=== PATIENT | female | born 1990 ===

== ENCOUNTER → 2021-04-20 14:10 | Observation (INO) ==
[2021-04-20 10:20] LABS: Basophils % 0.2 %; Eosinophils % 0.2 %; Hematocrit 29.8 % (35.3-44.9); Hemoglobin 9.3 g/dL (11.5-15.4); Immature Granulocytes % 0.9 % (0-4); Lymphocytes # 0.8 K/mcL (0.6-4.6); Lymphocytes % 9.4 %; Mean Corpuscular HGB Conc 31.2 g/dL (31.6-35.5); Mean Corpuscular Hemoglobin 24.6 pg (28.0-33.3); Mean Corpuscular Volume 78.8 fL (83.0-100.0); Mean Platelet Volume 10.5 fL (9.4-12.4); Monocytes # 0.4 K/mcL (0.0-1.3); Monocytes % 5.1 %; Neutrophils # 7.2 K/mcL (1.6-8.9); Platelet Count 271 K/mcL (140-400); Red Blood Count 3.78 M/mcL (3.82-4.97); Red Cell Distribution Width 13.5 % (11.5-14.5); Segmented Neutrophils % 84.2 %; White Blood Count 8.5 K/mcL (4.3-11.1)
[2021-04-20 10:39] LABS: Alanine Aminotransferase 10 Units/L (7-52); Aspartate Amino Transferase 14 Units/L (13-39); BUN/Creatinine Ratio 14 (6-26); Blood Urea Nitrogen 8 mg/dL (6-20); Glucose 144 mg/dL (70-105); Lactate Dehydrogenase 132 Units/L (140-271); Uric Acid 3.9 mg/dL (2.3-7.6); eGFR For African Americans > 60 (> 60); eGFR For Non-African Americans > 60 (> 60)
[2021-04-20 11:56] LABS: Protein/Creatinine Ratio,Urine 0.15 mg/mg (0.00-0.20)
[2021-04-20 13:16] LABS: Bacteria,Urine Few per hpf (None-Few); Bilirubin,Urine Negative (Negative); Blood,Urine Negative (Negative); Clarity,Urine Clear (Clear); Color,Urine Light-Yellow (Yellow); Glucose,Urine (UA) 70 mg/dL (Normal); Ketones,Urine Negative (Negative); Leukocyte Esterase,Urine Negative (Negative); Mucus,Urine Few per lpf (None-Few); Nitrite,Urine Negative (Negative); Protein,Urine Negative (Neg-Trace); RBC,Urine 0-3 per hpf (0-3); Specific Gravity,Urine 1.016 (1.010-1.025); Squamous Epithelial Cell,Urine Few per hpf (None-Few); Urobilinogen,Urine Normal (Normal); WBC,Urine 0-3 per hpf (0-3)
[~2021-04-20 14:10] MED LIST: Ringers Solution, Lactated 1,000 ML IVC SCH; Ringers Solution, Lactated 1,000 ML ONE
== END | disposition home or self-care (01) ==
LOC: 1NENULAB
PROVIDERS: ADMIT Student in an Organized Health Care Education/Training Program; ATTEND Student in an Organized Health Care Education/Training Program

== ENCOUNTER 2021-06-26 04:40 | Inpatient (IN) ==
[~2021-06-26 04:40] MED LIST changes: +*HR* Propofol 200 MG/20 ML VIAL IVP ONE; +*HR* Succinylcholine 200 MG/10 ML VIAL IVP ONE; +Acetaminophen IV 1,000 MG/100 ML BAG IVPB ONE; +Famotidine 20 MG/2 ML VIAL IVP ONE; +Lidocaine -MPF 2% 5 ML VIAL ONE; +Metoclopramide 10 MG/2 ML VIAL IVP ONE; +Ringers Solution, Lactated 1,000 ML IVC ONE; -Ringers Solution, Lactated 1,000 ML IVC SCH
[2021-06-26] MEDS ORDERED: *HR* HYDROMORPHONE 2 MG/ML VIAL ONE (04:49)
[2021-06-26] MEDS ORDERED: Ondansetron 4 MG/2 ML VIAL ONE (04:52)
[2021-06-26 04:58] LABS: Basophils % 0.4 %; Eosinophils % 0.1 %; Hematocrit 29.6 % (35.3-44.9); Hemoglobin 8.7 g/dL (11.5-15.4); Immature Granulocytes % 1.5 % (0-4); Lymphocytes # 2.1 K/mcL (0.6-4.6); Lymphocytes % 24.1 %; Mean Corpuscular HGB Conc 29.4 g/dL (31.6-35.5); Mean Corpuscular Hemoglobin 21.9 pg (28.0-33.3); Mean Corpuscular Volume 74.4 fL (83.0-100.0); Mean Platelet Volume 11.5 fL (9.4-12.4); Monocytes # 0.6 K/mcL (0.0-1.3); Monocytes % 7.2 %; Neutrophils # 5.7 K/mcL (1.6-8.9); Nucleated Red Blood Cells 0.5 /100 WBC (0); Platelet Count 338 K/mcL (140-400); Red Blood Count 3.98 M/mcL (3.82-4.97); Red Cell Distribution Width 17.8 % (11.5-14.5); Segmented Neutrophils % 66.7 %; White Blood Count 8.5 K/mcL (4.3-11.1)
[2021-06-26] MEDS ORDERED: Oxytocin 20 units/ LR 1000 mL 20 UNIT/1,000 ML BAG IVC ONE (05:05)
[2021-06-26] MEDS ORDERED: *HR* HYDROmorphone PCA *PREMADE* 20 MG/1MG/ML (20mL) PCA VIAL IVC PRN (05:26)
[2021-06-26] MEDS ORDERED: Simethicone 80 MG TAB.CHEW PO PRN (05:26)
[2021-06-26] MEDS ORDERED: Ondansetron 4 MG/2 ML VIAL IVP PRN ×2 (05:26→05:37)
[2021-06-26] MEDS ORDERED: Metoclopramide 10 MG/2 ML VIAL IVP PRN (05:26)
[2021-06-26] MEDS ORDERED: Rho Immune Globulin 1,500 UNIT SYRINGE IM ONE (05:26)
[2021-06-26] MEDS ORDERED: Oxytocin 20 units/ LR 1000 mL 20 UNIT/1,000 ML BAG IVC SCH (05:30)
[2021-06-26] MEDS ORDERED: Naloxone 0.4 MG/ML INJ IVP PRN (05:37)
[2021-06-26] MEDS ORDERED: Promethazine 6.25 MG in Water for inj. (sterile) 20 ML IVPB PRN (05:37)
[2021-06-26] MEDS ORDERED: *HR* HYDROmorphone PF 0.5 MG/0.5 ML SYRINGE IVP PRN (05:37)
[2021-06-26 12:59] LABS: Basophils % 0.1 %
[2021-06-26 13:00] LABS: Hematocrit 18.9 % (35.3-44.9); Immature Granulocytes % 0.6 % (0-4); Lymphocytes # 0.7 K/mcL (0.6-4.6); Lymphocytes % 6.7 %; Mean Corpuscular HGB Conc 30.2 g/dL (31.6-35.5); Mean Corpuscular Hemoglobin 22.7 pg (28.0-33.3); Mean Corpuscular Volume 75.3 fL (83.0-100.0); Mean Platelet Volume 11.4 fL (9.4-12.4); Monocytes # 0.4 K/mcL (0.0-1.3); Monocytes % 3.3 %; Neutrophils # 9.6 K/mcL (1.6-8.9); Platelet Count 245 K/mcL (140-400); Red Blood Count 2.51 M/mcL (3.82-4.97); Red Cell Distribution Width 17.5 % (11.5-14.5); Segmented Neutrophils % 89.3 %; White Blood Count 10.8 K/mcL (4.3-11.1)
[2021-06-26 13:08] LABS: Hemoglobin 5.7 g/dL (11.5-15.4)
[2021-06-26] MEDS: Ibuprofen 600 MG TABLET PO SCH ×2 (13:32→21:40)
[2021-06-26] MEDS ORDERED: 0.9 % Sodium Chloride 1,000 ML ONE (13:49)
[2021-06-26] MEDS: metroNIDAZOLE 500 MG TABLET PO SCH ×2 (16:06→21:41)
[2021-06-26] MEDS: cephALEXin 500 MG CAPSULE PO SCH ×2 (16:07→21:41)
[2021-06-26] MEDS: Acetaminophen 325 MG TABLET PO SCH ×2 (16:07→23:38)
[2021-06-26] MEDS: Methadone Oral Concentrate 50 MG/5 ML UDC PO SCH ×2 (17:54→22:05)
[2021-06-26 21:18] LABS: Hematocrit 20.5 % (35.3-44.9); Hemoglobin 6.1 g/dL (11.5-15.4); Mean Corpuscular HGB Conc 29.8 g/dL (31.6-35.5); Mean Corpuscular Hemoglobin 23.2 pg (28.0-33.3); Mean Corpuscular Volume 77.9 fL (83.0-100.0); Mean Platelet Volume 11.2 fL (9.4-12.4); Platelet Count 201 K/mcL (140-400); Red Blood Count 2.63 M/mcL (3.82-4.97); Red Cell Distribution Width 18.8 % (11.5-14.5); White Blood Count 9.7 K/mcL (4.3-11.1)
[2021-06-26 21:19] LABS: Basophils % 0.1 %; Hematocrit 20.1 % (35.3-44.9); Hemoglobin 6.2 g/dL (11.5-15.4); Immature Granulocytes % 0.7 % (0-4); Lymphocytes % 10.6 %; Mean Corpuscular HGB Conc 30.8 g/dL (31.6-35.5); Mean Corpuscular Volume 77.9 fL (83.0-100.0); Mean Platelet Volume 11.2 fL (9.4-12.4); Monocytes # 0.9 K/mcL (0.0-1.3); Monocytes % 8.9 %; Neutrophils # 7.8 K/mcL (1.6-8.9); Nucleated Red Blood Cells 0.3 /100 WBC (0); Platelet Count 203 K/mcL (140-400); Red Blood Count 2.58 M/mcL (3.82-4.97); Red Cell Distribution Width 18.6 % (11.5-14.5); Segmented Neutrophils % 79.7 %; White Blood Count 9.8 K/mcL (4.3-11.1)
[2021-06-26] MEDS ORDERED: 0.9 % Sodium Chloride 250 ML ONE (23:27)
[2021-06-27] MEDS: Ibuprofen 600 MG TABLET PO SCH ×3 (05:11→23:59)
[2021-06-27 06:55] LABS: Basophils % 0.1 %; Eosinophils % 0.1 %; Hematocrit 26.4 % (35.3-44.9); Hemoglobin 8.3 g/dL (11.5-15.4); Immature Granulocytes % 0.9 % (0-4); Lymphocytes # 0.7 K/mcL (0.6-4.6); Lymphocytes % 6.7 %; Mean Corpuscular HGB Conc 31.4 g/dL (31.6-35.5); Mean Corpuscular Hemoglobin 24.6 pg (28.0-33.3); Mean Corpuscular Volume 78.3 fL (83.0-100.0); Mean Platelet Volume 10.7 fL (9.4-12.4); Monocytes # 0.7 K/mcL (0.0-1.3); Monocytes % 6.3 %; Neutrophils # 9.1 K/mcL (1.6-8.9); Nucleated Red Blood Cells 0.3 /100 WBC (0); Platelet Count 175 K/mcL (140-400); Red Blood Count 3.37 M/mcL (3.82-4.97); Red Cell Distribution Width 17.8 % (11.5-14.5); Segmented Neutrophils % 85.9 %; White Blood Count 10.6 K/mcL (4.3-11.1)
[2021-06-27] MEDS: metroNIDAZOLE 500 MG TABLET PO SCH ×3 (09:09→21:49)
[2021-06-27] MEDS: Prenatal Vit/FA 1 EACH TABLET PO SCH (09:09)
[2021-06-27] MEDS: Methadone Oral Concentrate 50 MG/5 ML UDC PO SCH ×2 (09:10→21:49)
[2021-06-27] MEDS: cephALEXin 500 MG CAPSULE PO SCH ×3 (09:10→21:49)
[2021-06-27] MEDS: Acetaminophen 325 MG TABLET PO SCH ×3 (09:10→23:59)
[2021-06-27] MEDS ORDERED: Acetaminophen 325 MG TABLET PO PRN (23:44)
[2021-06-28] MEDS: Ibuprofen 600 MG TABLET PO SCH ×2 (06:30→21:27)
[2021-06-28] MEDS: Acetaminophen 325 MG TABLET PO SCH ×2 (06:31→16:18)
[2021-06-28] MEDS: Methadone Oral Concentrate 50 MG/5 ML UDC PO SCH ×2 (08:52→21:27)
[2021-06-28] MEDS: Prenatal Vit/FA 1 EACH TABLET PO SCH (08:52)
[2021-06-28] MEDS ORDERED: metroNIDAZOLE 500 MG TABLET PO SCH (09:00)
[2021-06-28] MEDS ORDERED: cephALEXin 500 MG CAPSULE PO SCH (09:00)
[2021-06-29] MEDS: Ibuprofen 600 MG TABLET PO SCH ×3 (06:12→18:28)
[2021-06-29] MEDS: Acetaminophen 325 MG TABLET PO SCH ×3 (06:12→18:28)
[2021-06-29] MEDS: Prenatal Vit/FA 1 EACH TABLET PO SCH (09:03)
[2021-06-29] MEDS: Methadone Oral Concentrate 50 MG/5 ML UDC PO SCH ×2 (09:04→21:17)
[2021-06-30] MEDS: Acetaminophen 325 MG TABLET PO SCH ×3 (00:21→11:38)
[2021-06-30] MEDS: Ibuprofen 600 MG TABLET PO SCH ×3 (00:21→11:38)
[2021-06-30] MEDS ORDERED: Lanolin 7 G OINT...G. TP PRN (04:40)
[2021-06-30 07:10] VITALS: BP 112/81; PULSE 82; TEMP 98.1; O2SAT 98
[2021-06-30] MEDS: Prenatal Vit/FA 1 EACH TABLET PO SCH (09:23)
[2021-06-30] MEDS: Methadone Oral Concentrate 50 MG/5 ML UDC PO SCH (09:24)
== END 2021-06-30 12:00 | disposition home or self-care (01) | DRG 540 ==
LOC: 1NENULAB → 1NENUOBS 08:28
PROVIDERS: ADMIT Obstetrics & Gynecology; ATTEND Obstetrics & Gynecology